=== PATIENT | female | born 1965 | race Caucasian/White ===

== ENCOUNTER 2016-06-09 05:20 | Inpatient (IN) ==
[2016-06-07 12:32] LABS: MANUAL DIFF NEEDED? NO; URINE SOURCE VOIDED
[2016-06-07 12:45] LABS: BILIRUBIN URINE NEGATIVE (NEGATIVE); BLOOD URINE NEGATIVE (NEGATIVE); CLARITY CLEAR (CLEAR); COLOR YELLOW; LEUKOCYTES URINE 1+ (NEGATIVE); NITRITE URINE NEGATIVE (NEGATIVE); PROTEIN URINE NEGATIVE (NEGATIVE); SP GRAVITY URINE 1.015; URINE MICROSCOPIC NEEDED? YES; UROBILINOGEN URINE NORMAL
[2016-06-07 12:55] LABS: BASO% 0.5 % (0.0-0.8); EOS# 0.19 X1000 (0.0-0.7); HEMATOCRIT 39.8 % (37.0-47.0); HEMOGLOBIN 13.5 g/dL (12.0-16.0); IMM GRAN# 0.02 X1000 (0.0-0.04); IMM GRAN% 0.2 % (0.0-0.5); LYMPH# 2.18 X1000 (1.2-3.4); LYMPH% 23.1 % (20.5-51.1); MCHC 33.9 g/dL (33-37); MCV 82.6 FL (81-99); MONO# 0.44 X1000 (0.11-0.59); MONO% 4.7 % (1.7-9.3); MPV 9.5 FL (7.4-10.4); NEUT% 69.5 % (42.2-75.2); PLT 362 X1000 (130-400); RBC 4.82 XMIL (4.2-5.4)
[2016-06-07 12:59] LABS: URINE EPITHELIAL CELLS <10 /HPF (<10)
--- NOTE | 2016-06-08 10:21 | HISTORY AND PHYSICAL ---
ADMITTING PHYSICIAN: James Gomez MD ADMITTING DIAGNOSIS: Dysfunctional uterine bleeding with dysmenorrhea and menorrhagia. SUMMARY: Vee Meraz is a 51-year-old 3, para 3, who is having heavy periods. She passes clots. She is also having cramps. She has been on control pills until recently. Due to her hypertension we felt that it was necessary for her to stop the control pills. However, once stopping the pills her periods have been worse. After discussing options with the patient she is being admitted for a laparoscopic-assisted vaginal hysterectomy. We will also remove both tubes and ovaries. The risks of the surgery including pain, bleeding, infection, bowel or bladder injury, and anesthesia complications have been discussed. Alternatives to this surgery were also discussed. PAST MEDICAL HISTORY: The patient has a history of hypertension. She has had 3 vaginal deliveries. She has had kidney stones in the past. ALLERGIES: Amoxicillin. CURRENT MEDICATIONS: Include Lexapro and Atacand/HCTZ. PHYSICAL EXAMINATION: VITAL SIGNS: Weight is 192. CARDIOVASCULAR: Regular rate and rhythm without murmurs, rubs, or gallops. PULMONARY: Clear. BREASTS: No masses. ABDOMEN: Tender without rebound, rigidity, or guarding. Bowel sounds are present and normal. PELVIC: Examination shows normal external genitalia. Recent pap smear was read as normal. The uterus is slightly enlarged and tender. There are no adnexal masses. EXTREMITIES: No clubbing, edema, or cyanosis. IMPRESSION: Dysfunctional uterine bleeding with dysmenorrhea and menorrhagia. PLAN: We will proceed with a laparoscopic-assisted vaginal hysterectomy and bilateral salpingo- oophorectomy. Risks, benefits, possible complications, and reasonable expectations of the surgery were discussed in detail.
[2016-06-09] MEDS ORDERED: LR 1,000 ML ONE ×4 (05:35→09:12)
[2016-06-09] MEDS ORDERED: VERSED ONE (06:22)
[2016-06-09] MEDS ORDERED: FENTANYL ONE (06:22)
[2016-06-09] MEDS ORDERED: DIPRIVAN 1% ONE (06:23)
[2016-06-09] MEDS ORDERED: EPHEDRINE ONE (06:23)
[2016-06-09] MEDS ORDERED: PEPCID ONE (06:24)
[2016-06-09] MEDS ORDERED: REGLAN ONE (06:24)
[2016-06-09] MEDS ORDERED: SENSORCAINE 0.25%/EPI 1:200,000 ONE (06:40)
[2016-06-09] MEDS ORDERED: CLAVE SECONDARY SET 11953 ONE (06:43)
[2016-06-09] MEDS ORDERED: KEFZOL 1 GM/D5W 50 ML ONE (06:43)
[2016-06-09] MEDS ORDERED: DILAUDID PCA VIAL ONE (09:12)
[2016-06-09] MEDS: DILAUDID ONE ×3 (09:23→09:37)
--- NOTE | 2016-06-09 09:36 | OPERATIVE NOTE ---
PROCEDURE DATE: 06/09/2016 SURGEON: James Gomez MD. BOOKING AGENT: Ru. ANESTHESIA: General endotracheal. OPERATION PERFORMED: Laparoscopic assisted vaginal hysterectomy. ADMITTING DIAGNOSIS: Dysfunctional uterine bleeding with dysmenorrhea and menorrhagia. POSTOPERATIVE DIAGNOSIS: Dysfunctional uterine bleeding with dysmenorrhea and menorrhagia. FINDINGS: The uterus was hyperemic, enlarged, and boggy, and suspicious for adenomyosis. DESCRIPTION OF PROCEDURE: The patient was taken back to the operating room and after general endotracheal anesthesia, was placed in the dorsal lithotomy position. The vagina, perineum, and abdomen were prepped and draped in the usual fashion. A catheter was in the urinary bladder. A periumbilical incision was made. Through this incision, the Veress needle was inserted. Pneumoperitoneum was created. Laparoscopic trocar was introduced without difficulty. After initial laparoscopic examination failed to reveal any signs of bowel or blood vessel injury, a 5 mm trocar was placed on both sides. The patient was placed in the Trendelenburg position and the uterus was grasped with a tenaculum. Beginning on the patient's left side, the left infundibulopelvic ligament was grasped, cauterized, and then excised using the LigaSure device. Continuing with the LigaSure device, the ovarian suspensory ligament was also grasped, cauterized, and excised. We then grasped, cauterized, and excised the mesosalpinx and round ligament. Continuing with the LigaSure, the broad ligament was then grasped, cauterized, and excised. The bladder flap was created. The uterine vessels were isolated and cauterized. We then directed attention to the right side where, in sequential steps, the infundibulopelvic ligament, ovarian suspensory ligament, the mesosalpinx, and round ligament were grasped, cauterized, and excised. The broad ligament was then grasped, cauterized, and excised using the LigaSure device. The bladder flap was further created and the vessels on the right side were cauterized. A trocar was left in place. All instruments were removed. We then began the vaginal hysterectomy part. A speculum was placed in the vaginal vault. The cervix was grasped with a tenaculum. The vaginal mucosa was then infiltrated with Marcaine and epinephrine solution. Anterior colporrhaphy was performed. This was taken down to the endopelvic fascia. The bladder was dissected off the lower uterine segment. The peritoneum was entered. We were unable to deliver the uterus through the anterior colporrhaphy. We therefore made a posterior incision and using the Jaime clamp, the uterosacral and cardinal ligaments were grasped, cauterized, and excised. We had some bleeding at the bladder pillars at this point and electrocautery was used to achieve hemostasis. With moderate difficulty, the uterus was delivered through the anterior colporrhaphy. At this point, we did have bilaterally uterine vessels bleeding which took several sutures to achieve hemostasis. It was at this time that we lost the majority of our blood. Once this bleeding was controlled, we morcellated the uterus to allow visualization. The uterine vessels were further clamped, excised, and ligated. The posterior vaginal cuff was then clamped, excised, and ligated. The uterus was thus removed in several morcellated pieces. Angle stitches were placed bilaterally. The cuff was run using the interlocking Vicryl suture. The vaginal mucosa was then reapproximated using interrupted Vicryl sutures. Clear urine was noted at this time. We re-gloved and reestablished pneumoperitoneum. The pelvic cavity was irrigated with copious amounts of sterile water. Hemostasis was noted at all pedicles. All instruments were removed at this time. The pneumoperitoneum was relieved. Laparoscopic incisions were oversewn using Vicryl suture and infiltrated with Marcaine. Blood loss was estimated by Anesthesia at 450 mL. The patient was extubated and went to the recovery room in stable condition.
[2016-06-09 09:39] LABS: URINE MICROSCOPIC NEEDED? NO; URINE SOURCE CATH
[2016-06-09 09:45] LABS: BILIRUBIN URINE NEGATIVE (NEGATIVE); BLOOD URINE NEGATIVE (NEGATIVE); CLARITY CLEAR (CLEAR); COLOR YELLOW; LEUKOCYTES URINE NEGATIVE (NEGATIVE); NITRITE URINE NEGATIVE (NEGATIVE); PROTEIN URINE NEGATIVE (NEGATIVE); UROBILINOGEN URINE NORMAL
[2016-06-09] MEDS ORDERED: TORADOL ONE (09:45)
[2016-06-09] MEDS ORDERED: DEMEROL IV PRN (10:48)
[2016-06-09] MEDS ORDERED: PHENERGAN IM PRN (10:50)
[2016-06-09] MEDS ORDERED: NORCO-10 PO PRN (10:51)
[2016-06-09] MEDS ORDERED: ZOFRAN IV PRN (10:56)
[2016-06-09] MEDS ORDERED: ZOFRAN ODT PO PRN (10:57)
[2016-06-09] MEDS ORDERED: MYLICON PO PRN (10:58)
[2016-06-09] MEDS ORDERED: DULCOLAX PR PRN (10:59)
[2016-06-09] MEDS ORDERED: FLEET ENEMA PR PRN (10:59)
[2016-06-09] MEDS ORDERED: AMBIEN PO PRN (11:02)
[2016-06-09] MEDS ORDERED: LEVSIN PO PRN (11:03)
[2016-06-09] MEDS ORDERED: DILAUDID PCA VIAL IV PRN (16:04)
[2016-06-09] MEDS ORDERED: NARCAN IV PRN (16:04)
[2016-06-09] MEDS: TORADOL IV SCH ×2 (16:26→22:23)
[2016-06-09] MEDS: OFIRMEV 1000 MG/ISOTONIC SOLN 100 ML IV SCH ×2 (16:26→22:23)
[2016-06-09] MEDS: LR 1,000 ML IV SCH ×2 (16:27→22:45)
[2016-06-09] MEDS: COLACE PO SCH ×2 (16:33→20:47)
[2016-06-09] MEDS: MYLICON PO SCH ×2 (16:34→20:47)
[2016-06-09] MEDS ORDERED: DECADRON ONE (17:23)
[2016-06-09] MEDS ORDERED: NEOSTIGMINE ONE (17:23)
[2016-06-09] MEDS ORDERED: XYLOCAINE-MPF 2% ONE (17:23)
[2016-06-09] MEDS ORDERED: ZEMURON ONE (17:23)
[2016-06-09] MEDS ORDERED: ZOFRAN ONE (17:23)
[2016-06-09] MEDS ORDERED: QUELICIN (DOSE) ONE (17:23)
[2016-06-09] MEDS ORDERED: ROBINUL ONE (17:23)
[2016-06-09 17:24] LABS: HEMOGLOBIN 11.2 g/dL (12.0-16.0)
[2016-06-09] MEDS: ZOFRAN ODT PO PRN (19:05)
[2016-06-10] MEDS: TORADOL IV SCH (04:52)
[2016-06-10] MEDS ORDERED: D/C PCA XX ONE (06:15)
[2016-06-10 06:18] LABS: HEMATOCRIT 32.1 % (37.0-47.0); HEMOGLOBIN 10.3 g/dL (12.0-16.0); MCH 27.8 PG (27-31); MCHC 32.1 g/dL (33-37); MCV 86.8 FL (81-99); MPV 9.8 FL (7.4-10.4); RBC 3.7 XMIL (4.2-5.4)
[2016-06-10] MEDS: LR 1,000 ML IV SCH ×2 (06:32)
[2016-06-10] MEDS: MYLICON PO SCH ×5 (07:44→20:55)
[2016-06-10] MEDS: NORCO-5 PO PRN ×2 (15:56→23:31)
[2016-06-10] MEDS: COLACE PO SCH ×2 (15:56→20:55)
[2016-06-10] MEDS: ZOFRAN ODT PO PRN (15:56)
[2016-06-11 07:40] VITALS: BP 135/43
--- NOTE | 2016-06-12 05:02 | DISCHARGE SUMMARY ---
ADMISSION DATE: 06/09/2016 DISCHARGE DATE: 06/11/2016 ADMITTING DIAGNOSIS: Dysfunction uterine bleeding with dysmenorrhea and menorrhagia. PRINCIPAL DIAGNOSIS: Dysfunction uterine bleeding with dysmenorrhea and menorrhagia. PRINCIPAL PROCEDURE: Laparoscopic-assisted vaginal hysterectomy with bilateral salpingo- oophorectomy. SUMMARY: Vee Meraz is a 51-year-old, 3, para 3, with heavy painful menses. Medical management failed to relieve her symptoms. She was, therefore, admitted to the hospital and underwent a laparoscopic-assisted vaginal hysterectomy and bilateral salpingo-oophorectomy. Final pathology report is pending. There were no intraoperative complications. Postoperatively, the patient has done well. She has remained afebrile and all vital signs were stable. She had an admission hemoglobin of 13.5 and hematocrit of 39.8 with discharge hemoglobin of 10.3 and hematocrit 32.1. On the day of discharge, cardiac and pulmonary examinations were normal. Bowel and bladder function was normal. Incision was were dry and she is having scant vaginal bleeding. Ms. Meraz will be discharged today. I will see her back on Tuesday. Routine discharge instructions, activity limitations, and precautions were discussed. She will resume her current home medications except she will stop control pills. I have not started hormone replacement therapy at this time but she will call for me if we need to begin that prior to me seeing her next week.
== END 2016-06-11 08:05 | disposition home or self-care (01) | DRG 743 ==
LOC: P.WC 05:20
PROVIDERS: ADMIT Obstetrics & Gynecology; ATTEND Obstetrics & Gynecology
PROC: 0UT2FZZ Resection of Bilateral Ovaries, Via Natural or Artificial Opening With Percutaneous Endoscopic Assistance (ICD-10-PCS; 2016-06-09)
PROC: 0UT7FZZ Resection of Bilateral Fallopian Tubes, Via Natural or Artificial Opening With Percutaneous Endoscopic Assistance (ICD-10-PCS; 2016-06-09)
PROC: 0UT9FZZ Resection of Uterus, Via Natural or Artificial Opening With Percutaneous Endoscopic Assistance (ICD-10-PCS; principal; 2016-06-09 06:47)
PROC: 0UTC7ZZ Resection of Cervix, Via Natural or Artificial Opening (ICD-10-PCS; 2016-06-09 06:47)
DX: N92.0 Excessive and frequent menstruation with regular cycle (principal); I10 Essential (primary) hypertension; N94.6 Dysmenorrhea, unspecified; N80.0 Endometriosis of uterus; J45.909 Unspecified asthma, uncomplicated; Z87.442 Personal history of urinary calculi; F41.9 Anxiety disorder, unspecified; F32.9 Major depressive disorder, single episode, unspecified; Z79.899 Other long term (current) drug therapy; Z79.3 Long term (current) use of hormonal contraceptives
CPT/HCPCS: 36415; 81001; 85014; 85018; 85025; 85027; 86850; 86900; 86901; 94761; 94799; C1765; J0131; J0330; J0690; J1100; J1170; J1885; J2250; J2405; J2765; J3010; J7120; J2710; S0028